=== PATIENT | female | born 1975 | race Caucasian/White ===

== ENCOUNTER 2017-07-18 12:02 | Emergency (ER) | payer BC ==
[2017-07-18 12:16] VITALS: BP 133/82
[2017-07-18] MEDS ORDERED: Albuterol/Ipratropium NEB.SOL* Albuterol 2.5 MG/Ipratropium 0.5 MG 3 ML INH ONE (13:17)
--- NOTE | 2017-07-18 13:17 | UC ---
Respiratory Complaint HPI - HPI Summary HPI Summary: Seen 07/15/17 at another facility dx with sinusitis rx'd Augmentin and flonase comes in today with continued c/o congestion---Has had 2 weeks of worsening cough no fevers - History of Current Complaint Chief Complaint: UCRespiratory Stated Complaint: CONGESTION Time Seen by Provider: 07/18/17 13:06 Hx Obtained From: Patient Hx Last Menstrual Period: 3 wks ago ?: No Onset/Duration: Gradual Onset, Lasting Weeks - 2, Still Present Timing: Constant Severity Initially: Moderate Severity Currently: Moderate Character: Cough: Productive Aggravating Factors: Deep Breaths, Recumbent Position Alleviating Factors: Nothing Associated Signs And Symptoms: Positive: Dyspnea - with cough, URI - Allergies/Home Medications Allergies/Adverse Reactions: Allergies Allergy/AdvReac Type Severity Reaction Status Date / Time fracisco rudolph Allergy Hives Uncoded 07/18/17 12:17 Home Medications: Home Medications Amoxicillin/Clavulanate TAB* [Augmentin TAB 875*] 1 tab PO BID 07/18/17 [ History Confirmed 07/18/17] Fluticasone NASAL SPRAY 50MCG* [Flonase NASAL SPRAY 50MCG*] 2 spray NASAL DAILY 07/18/17 [History Confirmed 07/18/17] PMH/Surg Hx/FS Hx/Imm Hx Previously Healthy: No - enviromental allergies - Surgical History Surgical History: None - Family History Known Family History: Positive: None - Social History Occupation: Employed Full-time Lives: With Family Alcohol Use: None Substance Use Type: None Smoking Status (MU): Never Smoked Tobacco Have You Smoked in the Last Year: No - Immunization History Most Recent Influenza Vaccination: 2012 Most Recent Tetanus Shot: during Most Recent Pneumonia Vaccination: not applicable Review of Systems Constitutional: Negative Skin: Negative Eyes: Negative ENT: Negative Respiratory: Cough Cardiovascular: Negative Gastrointestinal: Negative Genitourinary: Negative Motor: Negative Neurovascular: Negative Musculoskeletal: Negative Neurological: Negative Psychological: Negative Is Patient Immunocompromised?: No All Other Systems Reviewed And Are Negative: Yes Physical Exam Triage Information Reviewed: Yes Appearance: No Pain Distress, Well-Nourished, Ill-Appearing - mild Vital Signs: Initial Vital Signs Temp 99.4 F 07/18/17 12:12 Pulse 88 07/18/17 12:12 Resp 18 07/18/17 12:12 BP 133/82 07/18/17 12:12 Pulse Ox 99 07/18/17 12:12 Vital Signs Reviewed: No Eye Exam: Normal Eyes: Positive: Conjunctiva Clear ENT Exam: Normal ENT: Positive: Normal ENT inspection, Hearing grossly normal, Pharynx normal, TMs normal, Uvula midline. Negative: Nasal congestion, Nasal drainage, Tonsillar swelling, Tonsillar exudate, Trismus, Muffled voice, Hoarse voice, Dental tenderness, Sinus tenderness Dental Exam: Normal Neck exam: Normal Neck: Positive: Supple, Nontender Respiratory Exam: Normal Respiratory: Positive: Chest non-tender, No respiratory distress, No accessory muscle use, Wheezing Cardiovascular Exam: Normal Cardiovascular: Positive: RRR, No Murmur, Pulses Normal, Brisk Capillary Refill Musculoskeletal Exam: Normal Musculoskeletal: Positive: Strength Intact, ROM Intact, No Edema Neurological Exam: Normal Neurological: Positive: Alert, Muscle Tone Normal Psychological Exam: Normal Skin Exam: Normal UC Diagnostic Evaluation - Laboratory O2 Sat by Pulse Oximetry: 99 Re-Evaluation - Re-Evaluation First Eval Change: Improved - feels better after neb, increase air movement Respiratory Course/Dx - Course Course Of Treatment: aerochamber, prednisone continue current medication, increase fluids, follow with pcp - Differential Dx/Diagnosis Provider Diagnoses: Acute Bronchospasms Discharge - Discharge Plan Condition: Stable Disposition: HOME Prescriptions: predniSONE TAB* [Deltasone TAB*] 20 mg PO DAILY #15 tab Patient Education Materials: Bronchospasm (ED), How to Use a Metered-Dose Inhaler and a Spacer (ED) Referrals: Gabriel Klein MD [Primary Care Provider] - If Needed
[2017-07-18] MEDS ORDERED: predniSONE TAB* 20 MG PO ONE (13:18)
== END 2017-07-18 14:24 | disposition home or self-care (01) ==
LOC: UCEAST 12:02
DX: J98.01 Acute bronchospasm (principal)
CPT/HCPCS: 99212; A9270-GY; G0463; J7512